=== PATIENT | male | born 1980 | race Two or more races ===

== ENCOUNTER 2017-01-21 22:05 | Emergency (ER) | payer OTHER ==
[~2017-01-21] VITALS: Ht 180.3 cm; Wt 129.3 kg
[2017-01-21] MEDS ORDERED: NKM (22:35)
[2017-01-21 22:42] VITALS: BP 124/80
[2017-01-21] MEDS ORDERED: Ketorolac 30mg Inj IV ONE (22:45)
[2017-01-21 23:09] LABS: EOSINOPHILS % (AUTO) 1.1 % (0.0-3.0); LYMPHOCYTES % (AUTO) 18.5 % (20.0-45.0); MEAN CORPUSCULAR HEMOGLOBIN 30.3 PG (27.0-31.0); MEAN CORPUSCULAR HGB CONC 34.2 G/DL (32.0-36.0); MEAN CORPUSCULAR VOLUME 89 FL (80-99); MEAN PLATELET VOLUME 6.5 FL (6.5-10.1); MONOCYTES % (AUTO) 8.8 % (1.0-10.0); NEUTROPHILS % (AUTO) 70.6 % (45.0-75.0); PLATELET COUNT 336 K/UL (150-450); RED BLOOD COUNT 5.12 M/UL (4.70-6.10); RED CELL DISTRIBUTION WIDTH 10.9 % (11.6-14.8); WHITE BLOOD COUNT 12.4 K/UL (4.8-10.8)
[2017-01-21 23:14] LABS: APPEARANCE,URINE CLEAR; KETONES,URINE 1+ (NEGATIVE); LEUKOCYTE ESTERASE ,URINE 1+ (NEGATIVE); NITRITE,URINE NEGATIVE (NEGATIVE); PH,URINE 6 (4.5-8.0); PROTEIN,URINE 1+ (NEGATIVE); UROBILINOGEN,URINE 1 MG/DL (0.0-1.0)
[2017-01-21 23:20] LABS: BACTERIA,URINE FEW /HPF; RBC,URINE 0-2 /HPF (0 - 0)
[2017-01-21 23:23] LABS: ALBUMIN/GLOBULIN RATIO 1.2 (1.0-2.7); CALCIUM 9.5 mg/dL (8.6-10.2); CREATININE 1.6 mg/dL (0.7-1.2); GLOMERULAR FILTRATION RATE 49.7 mL/min (>60); POTASSIUM 4.1 mEQ/L (3.4-4.9); TOTAL PROTEIN 7.7 g/dL (6.6-8.7)
[2017-01-22] MEDS ORDERED: cefTRIAXone 1 GM in NS 55 ML IVPB ONE ×2
--- NOTE | 2017-01-22 00:27 | Emergency Room Report ---
History of Present Illness General Chief Complaint: Abdominal Pain Source: Patient Present Illness HPI Is a 36-year-old male with no past medical history. He presents with left lower quadrant pain for the last 4 days. No fever or chills. Has vomiting with pain is severe. No dysuria frequency. Urine is dark Denies any other complaint. Similar complaint for years ago. Never followup for it. pain is 7/ 10. When his severe as 10 out of 10. Allergies: Coded Allergies: No Known Allergies (Unverified , 01/21/17) Patient History Past Medical History: see triage record, old chart reviewed Past Surgical History: other Pertinent Family History: none Social History: Denies: smoking Immunizations: other Reviewed Nursing Documentation: PMH: Agreed, PSxH: Agreed Nursing Documentation-PMH Past Medical History: No Stated History Review of Systems Eye: Denies: blurred vision, eye pain ENT: Denies: ear pain, nose congestion, throat swelling Respiratory: Denies: cough, shortness of breath Cardiovascular: Denies: chest pain, palpitations Gastrointestinal: Reports: abdominal pain, nausea, vomiting, Denies: diarrhea Musculoskeletal: Denies: back pain, joint pain Skin: Denies: rash Neurological: Denies: headache, numbness Endocrine: Denies: increased thirst, increased urine Hematologic/Lymphatic: Denies: easy bruising All Other Systems: negative except mentioned in HPI Physical Exam Vital Signs Date Time Temp Pulse Resp B/P Pulse Ox O2 Delivery O2 Flow Rate FiO2 01/21/17 22:29 97.3 79 16 124/80 96 Room Air vitals normal Sp02 EP Interpretation: reviewed, normal General Appearance: well appearing, no apparent distress, alert Head: normocephalic, atraumatic Eyes: bilateral eye EOMI, bilateral eye PERRL ENT: hearing grossly normal, normal pharynx Neck: full range of motion, supple, no meningismus Respiratory: chest non-tender, lungs clear, normal breath sounds Cardiovascular #1: regular rate, rhythm, no murmur Gastrointestinal: normal bowel sounds, no mass, no organomegaly, no bruit, non- distended, tenderness - Mild left lower quadrant Musculoskeletal: back normal, gait/station normal, normal range of motion Psychiatric: mood/affect normal Skin: warm/dry Medical Decision Making Diagnostic Impression: Primary Impression: Ureteral calculus, left ER Course Patient with ureteral stone. Because of the perinephric stranding, we'll put on antibiotics. No evidence of obstruction. No evidence of infection. Lab Results Impression labs showed renal insufficiency CT/MRI/US Diagnostic Results CT/MRI/US Diagnostic Results : Imaging Test Ordered: CT abdomen and pelvis Impression Read by radiologist. Mild to moderate left hydronephrosis and perinephric stranding. 6 mm stones seen at the left UVJ. Appendix normal. Last Vital Signs Date Time Temp Pulse Resp B/P Pulse Ox O2 Delivery O2 Flow Rate FiO2 01/21/17 22:29 97.3 79 16 124/80 96 Room Air Status: improved Disposition: HOME, SELF-CARE Condition: Stable Scripts Cephalexin* (KEFLEX*) 500 Mg Capsule 500 MG ORAL TID, #21 CAP 0 Refills Prov: CHAD THOMPSON M.D. 01/22/17 Hydrocodone/Acetaminophen 5-325* (HYDROCODONE/ACETAMINOPHEN 5-325*) 1 Each Tablet 1 TAB ORAL Q6H Y for For Pain, #20 TAB 0 Refills Prov: CHAD THOMPSNO M.D. 01/22/17 Tamsulosin Hcl (TAMSULOSIN HCL*) 0.4 Mg Cap.er.24h 0.4 MG ORAL BEDTIME, #14 CAP Prov: CHAD THOMPSON M.D. 01/22/17 Referrals: NOT CHOSEN JOSHUA/,REFERRING (PCP) Additional Instructions: Followup with your DrAgus in 7 days. Return if symptom worsen. CHAD THOMPSON M.D. Jan 22, 2017 00:27
[2017-01-22] MEDS ORDERED: KEFLEX500 MG ORAL (00:32)
[2017-01-22] MEDS ORDERED: HYDROCODON-ACE1 EA15 ORAL (00:32)
[2017-01-22] MEDS ORDERED: TAMSULOSIN HCL0.4 MG ORAL (00:32)
[2017-01-22 01:01] VITALS: BP 119/72
--- NOTE | 2017-01-23 08:31 | Diagnostic Imaging Report ---
Indication: Abdominal pain Technique: Continuous helical transaxial imaging of the abdomen and pelvis was obtained from the lung bases to the pubic symphysis. No intravenous contrast was administered. Coronal 2-D reformats were also obtained. Total Dose length Product (DLP): [address] Dose Index Volume (CTDIvol): 20 mGy Comparison: none Findings: The lung bases are clear. Gallbladder is unremarkable. Moderate left hydronephrosis/hydroureter secondary to a 6 mm stone at the left UVJ noted. The bladder is nondistended. There are other punctate nonobstructive calculi within the calyces of both kidneys. The appendix is demonstrated appears normal. No free fluid or free air identified. Impression: A 6 mm left UVJ stone with moderate hydronephrosis. Additional multiple nonobstructive stones in both kidneys demonstrated. Normal appendix [facility] has communicated the preliminary results to the Emergency Department. Their findings are largely concordant with this report. The CT scanner at [facility] is accredited by the [employer] and the scans are performed using dose optimization techniques as appropriate to a performed exam including Automatic Exposure control.
== END 2017-01-22 01:01 | disposition home or self-care (01) ==
LOC: EMR 23:05
DX: N20.1 Calculus of ureter (principal); N13.30 Unspecified hydronephrosis
CPT/HCPCS: 36415; 74176; 80053; 81003; 83690; 85025; 96374; 96375; 99284; J0696; J1885; J2405